=== PATIENT | male | born 1955 | race Caucasian/White ===

== ENCOUNTER 2017-09-06 11:45 | Emergency (ER) | payer OTHER ==
[2017-09-06 12:15] LABS: CHLORIDE,CL 108 mEq/L (98-106); SODIUM,NA 143 mEq/L (136-145)
[2017-09-06 12:35] VITALS: BP 120/66
--- NOTE | 2017-09-06 17:50 | EDM.PDOC ---
ED HPI GENERAL MEDICAL PROBLEM - General Chief Complaint: Chest Pain Stated Complaint: CP Time Seen by Provider: 09/06/17 12:07 Source of Information: Reports: Patient History Limitations: Reports: No Limitations - History of Present Illness INITIAL COMMENTS - FREE TEXT/NARRATIVE: States that he was loading a truck at the [employer] and suddenly became SOB with some midsternal chest pain, sweaty and weak. Staff there dd call 911 and he was brought in by ambulance. His sats were stable on room air in the 's. He did receive a nitro enroute and that completely relieved his pain. When arriving here he did not have any further chest pain. He relates that his pain was midsternal without radiation. No vomiting or fever with it. [facility] [place] and sees MIKE Esposito there. He had a "chemical stress done in April" and it was normal. Has never had pain like this before. He did have a father and mother with heart disease both requiring bypass surgeries. He denies any recent injury or trauma to the chest. Onset: Sudden Location: Reports: Chest Quality: Reports: Sharp Associated Symptoms: Reports: Chest Pain - Related Data Allergies Allergy/AdvReac Type Severity Reaction Status Date / Time No Known Allergies Allergy Verified 09/06/17 11:54 Home Meds: Home Meds Alfuzosin HCl [Alfuzosin HCl ER] 10 mg PO DAILY 09/06/17 [History] Etodolac 400 mg PO TID 09/06/17 [History] Finasteride [Proscar] 5 mg PO DAILY 09/06/17 [History] Glucosamine 7 1 tab PO DAILY 09/06/17 [History] Ibuprofen 200 mg PO Q6H PRN 09/06/17 [History] Loperamide HCl [Loperamide] 2 mg PO ASDIRECTED PRN 09/06/17 [History] Losartan [Cozaar] 100 mg PO DAILY 09/06/17 [History] Metoprolol Tartrate 25 mg PO BID 09/06/17 [History] Naproxen Sodium 220 mg PO Q12H PRN 09/06/17 [History] Pravastatin [Pravachol] 40 mg PO DAILY 09/06/17 [History] amLODIPine Besylate [Amlodipine Besylate] 5 mg PO DAILY 09/06/17 [History] Past Medical History HEENT History: Reports: Cataract Cardiovascular History: Reports: High Cholesterol, Hypertension Gastrointestinal History: Reports: Chronic Diarrhea Genitourinary History: Reports: BPH Endocrine/Metabolic History: Reports: Obesity/BMI 30+ - Past Surgical History HEENT Surgical History: Reports: Cataract Surgery, Tonsillectomy GI Surgical History: Reports: Appendectomy Male Surgical History: Reports: Varicocele Resection Musculoskeletal Surgical History: Reports: Other (See Below) Other Musculoskeletal Surgeries/Procedures:: SEVERAL KNEE SURGIES BILATERALLY Social & Family History - Family History Family Medical History: Noncontributory - Tobacco Use Smoking Status *Q: Current Every Day Smoker Years of Tobacco use: 25 Packs/Tins Daily: 1.5 - Caffeine Use Caffeine Use: Reports: Coffee - Recreational Drug Use Recreational Drug Use: No ED ROS GENERAL - Review of Systems Review Of Systems: See Below Constitutional: Reports: Diaphoresis. Denies: Fever, Chills, Weakness HEENT: Reports: No Symptoms Respiratory: Reports: No Symptoms Cardiovascular: Reports: Chest Pain. Denies: Edema GI/Abdominal: Reports: Nausea. Denies: Abdominal Pain, Constipation, Diarrhea, Vomiting Musculoskeletal: Reports: No Symptoms Skin: Reports: No Symptoms Neurological: Denies: Confusion, Dizziness, Headache ED EXAM, GENERAL - Physical Exam Exam: See Below Exam Limited By: No Limitations General Appearance: Alert, WD/WN, No Apparent Distress Ears: Normal External Exam, Normal TMs Nose: Normal Inspection Throat/Mouth: Normal Inspection, Normal Oropharynx, Normal Voice Head: Atraumatic, Normocephalic Neck: Normal Inspection, Supple, Non-Tender, Full Range of Motion Respiratory/Chest: No Respiratory Distress, Lungs Clear, Normal Breath Sounds Cardiovascular: Regular Rate, Rhythm, No Edema, No Murmur GI/Abdominal: Normal Bowel Sounds, Soft, Non-Tender Extremities: Normal Inspection, Normal Range of Motion, No Pedal Edema, Normal Capillary Refill Neurological: Alert, Oriented Psychiatric: Normal Affect Skin Exam: Warm, Dry, Intact Course - Vital Signs Last Recorded V/S: Last Vital Signs Temp 97.3 F 09/06/17 11:48 Pulse 66 09/06/17 12:30 Resp 16 09/06/17 12:00 BP 120/66 09/06/17 12:30 Pulse Ox 91 L 09/06/17 12:30 - Orders/Labs/Meds Orders: Active Orders 24 hr Category Date Time Status Oxygen Therapy, ED [RC] ASDIRECTED Care 09/06/17 12:00 Active Chest 2V [CR] Stat Exams 09/06/17 11:57 Taken Labs: Laboratory Tests 09/06/17 09/06/17 09/06/17 Range/Units 11:55 11:55 11:55 WBC 7.4 (5.0-10.0) 10^3/uL RBC 5.27 (4.50-6.00) 10^6/uL Hgb 16.1 (14.0-18.0) g/dL Hct 47.6 (40.0-54.0) % MCV 90.3 (82.0-94.0) fL MCH 30.6 (27.0-32.0) pg MCHC 33.8 (33.0-38.0) g/dL RDW Coeff of Jose 13.3 (11.0-15.0) % Plt Count 167 (150-400) 10^3/uL Neut % (Auto) 63.8 (35-85) % Lymph % (Auto) 26.7 (10-55) % Smyth % (Auto) 6.4 (0-16) % Eos % (Auto) 2.4 (0-5) % Baso % (Auto) 0.7 (0-3) % Neut # (Auto) 4.72 (1.80-7.00) 10^3/uL Lymph # (Auto) 1.97 (1.00-4.80) 10^3/uL Smyth # (Auto) 0.47 (0.00-0.80) 10^3/uL Eos # (Auto) 0.18 (0.00-0.45) 10^3/uL Baso # (Auto) 0.05 10^3/uL PT 10.3 (9.7-12.3) SEC INR 0.96 (0.92-1.18) APTT 27.1 (24.5-30.9) SEC Sodium 143 (136-145) mEq/L Potassium 4.2 (3.5-5.0) mEq/L Chloride 108 H (98-106) mEq/L Carbon Dioxide 25 (21-32) mmol/L BUN 22 H (7-18) mg/dL Creatinine 1.2 (0.7-1.3) mg/dL Est Cr Clr Drug Dosing 67.11 mL/min Estimated GFR (MDRD) > 60 (>=60) mL/min Glucose 100 H (75-99) mg/dL Calcium 8.8 (8.4-10.1) mg/dL Lactate Dehydrogenase 149 (100-190) U/L Creatine Kinase 174 (35-232) U/L Troponin I < 0.017 (0.00-0.06) ng/mL 09/06/17 Range/Units 16:30 WBC (5.0-10.0) 10^3/uL RBC (4.50-6.00) 10^6/uL Hgb (14.0-18.0) g/dL Hct (40.0-54.0) % MCV (82.0-94.0) fL MCH (27.0-32.0) pg MCHC (33.0-38.0) g/dL RDW Coeff of Jose (11.0-15.0) % Plt Count (150-400) 10^3/uL Neut % (Auto) (35-85) % Lymph % (Auto) (10-55) % Smyth % (Auto) (0-16) % Eos % (Auto) (0-5) % Baso % (Auto) (0-3) % Neut # (Auto) (1.80-7.00) 10^3/uL Lymph # (Auto) (1.00-4.80) 10^3/uL Smyth # (Auto) (0.00-0.80) 10^3/uL Eos # (Auto) (0.00-0.45) 10^3/uL Baso # (Auto) 10^3/uL PT (9.7-12.3) SEC INR (0.92-1.18) APTT (24.5-30.9) SEC Sodium (136-145) mEq/L Potassium (3.5-5.0) mEq/L Chloride (98-106) mEq/L Carbon Dioxide (21-32) mmol/L BUN (7-18) mg/dL Creatinine (0.7-1.3) mg/dL Est Cr Clr Drug Dosing mL/min Estimated GFR (MDRD) (>=60) mL/min Glucose (75-99) mg/dL Calcium (8.4-10.1) mg/dL Lactate Dehydrogenase 231 H (100-190) U/L Creatine Kinase 174 (35-232) U/L Troponin I < 0.017 (0.00-0.06) ng/mL - Re-Assessments/Exams Free Text/Narrative Re-Assessment/Exam: 09/06/17 15:30 Repeated labs at this time but analyzer was broke down and we were not able to get the results back until 17:30 09/06/17 17:35 Discussed that his repeat cardiac enzymes were also negative. EKG is unchanged from the previous one. He has not had any further chest pain or SOB with it. Discussed with the pt that I would contact his primary care provider in the AM and schedule a rechec with her. Symptoms were concerning for cardiac even though the labs came back negative. He voices understanding of this and is in agreement of it. Departure - Departure Time of Disposition: 17:46 Disposition: Home, Self-Care 01 Condition: Good Clinical Impression: Atypical chest pain Instructions: Nonspecific Chest Pain Referrals: PCP,None [Primary Care Provider] - Forms: ED Department Discharge Additional Instructions: We will call you tomorrow [facility]. May return to normal activities as tolerated. Do not overdo things for the next several days. If any further chest pain occurs then needs to return to the ER. - Problem List & Annotations (1) Atypical chest pain SNOMED Code(s): 770430465 Code(s): R07.89 - OTHER CHEST PAIN Status: Acute Priority: High - Problem List Review Problem List Initiated/Reviewed/Updated: Yes - My Orders Last 24 Hours: My Active Orders 09/06/17 11:57 Chest 2V [CR] Stat 09/06/17 12:00 Oxygen Therapy, ED [RC] ASDIRECTED - Assessment/Plan Last 24 Hours: My Active Orders 09/06/17 11:57 Chest 2V [CR] Stat 09/06/17 12:00 Oxygen Therapy, ED [RC] ASDIRECTED
== END 2017-09-06 18:00 | disposition home or self-care (01) ==
LOC: CC.ED 11:45
DX: R07.89 Other chest pain (principal); E78.00 Pure hypercholesterolemia, unspecified; I10 Essential (primary) hypertension; F17.210 Nicotine dependence, cigarettes, uncomplicated; Z79.899 Other long term (current) drug therapy
CPT/HCPCS: 36415; 71046; 80048; 82550; 83615; 84484; 85025; 85610; 85730; 93005; 99285